=== PATIENT | female | born 1980 | race Caucasian/White ===

== ENCOUNTER 2021-12-05 12:49 | Emergency (ER) | payer OTHER, SELFPAY ==
[2021-12-05] MEDS ORDERED: NA CHLORIDE 0.9% 1,000 ML ONE (13:21)
[2021-12-05] MEDS ORDERED: KETOROLAC 30 MG/ML INJ ONE (13:21)
[2021-12-05 13:23] LABS: Urine Blood Negative (Negative); Urine Glucose Negative (Negative); Urine Protein Negative (Negative)
--- NOTE | 2021-12-05 13:41 | RAD REPORT ---
EXAM DESCRIPTION: CT - Abdomen Pelvis Wo Contrast - 12/05/2021 1:27 pm CLINICAL HISTORY: Abdominal pain. Abdominal pain, acute, nonlocalized COMPARISON: No comparisons TECHNIQUE: CT imaging of the abdomen and pelvis was performed without contrast. Solid organ, bowel a nd vascular assessment is limited due to lack of IV and oral contrast. All CT scans are performed using dose optimization technique as appropriate and may include automated exposure control or mA/KV adjustment according to patient size. FINDINGS: The lower lung varma are clear. The liver, spleen, pancreas, adrenal glands and kidneys are within normal limits for a limited non-co ntrast examination. No bowel obstruction, free air, free fluid or abscess. The appendix is normal. Tiny air bubble in th e urinary bladder. The osseous structures are within normal limits. IMPRESSION: No acute intra-abdominal or pelvic findings. Tiny air bubble in the urinary bladder seen. Suggest correlation for possible cholecystitis. A limited non-contrast examination was performed as detailed.
[2021-12-05 13:50] LABS: Absolute Lymphocytes (CBC) 1.7 K/uL (0.7-4.9); Hematocrit 39.1 % (36.0-45.0); Lymphocytes % 25.6 % (15.3-44.8); MCV 87.4 fL (80-100); MPV 9.4 fL (7.6-11.3); RBC Red Blood Cell Count 4.47 M/uL (3.86-4.86)
--- NOTE | 2021-12-05 13:52 | RAD REPORT ---
EXAM DESCRIPTION: US - Abdomen Exam Limited - 12/05/2021 1:25 pm CLINICAL HISTORY: ABD PAIN COMPARISON: No comparisons FINDINGS: The gallbladder demonstrates no gallstones. No pericholecystic fluid or gallbladder wall t hickening. The common bile duct is normal measuring 3 mm. The liver demonstrates no findings of intrahepatic biliary dilatation. IMPRESSION: Unremarkable examination.
[2021-12-05 14:10] LABS: Urine Bacteria <20 /HPF (<20); Urine RBC <5 /HPF (None Seen)
[2021-12-05 14:20] LABS: Albumin 4.1 g/dL (3.4-5.0); Bilirubin Total 0.5 mg/dL (0.2-1.0); Protein, Total 6.9 g/dL (6.4-8.2)
--- NOTE | 2021-12-05 14:24 | EDPHYS ---
Physician Documentation [facility] Name: Kerline Sheikh Age: 41 yrs Sex: Female : 1980 Arrival Date: 12/05/2021 Time: 12:57 Bed 24 Private MD: ED Physician David Zabala HPI: 12/05 14:03 This 41 yrs old Female presents to ER via Unassigned with complaints of ruq lorne pain , right flank pain. 14:03 The patient presents with abdominal pain in the right upper quadrant, right lower lorne quadrant, abdominal distention in the upper abdomen, in the lower abdomen. Onset: The symptoms/episode began/occurred 2 day(s) ago. The symptoms radiate to Associated signs and symptoms: Pertinent positives: anorexia. The symptoms are described as crampy. Modifying factors: The symptoms are alleviated by remaining still, the symptoms are aggravated by movement. The patient has not experienced similar symptoms in the past. 14:25 Severity of pain: At its worst the pain was mild moderate in the emergency department lorne the pain is unchanged. Historical: - Allergies: 15:03 No Known Allergies; zheng - Home Meds: 15:03 None [Active]; zheng - PMHx: 15:03 None; zheng - PSHx: 15:03 None; zheng - Immunization history:: Adult Immunizations up to date. - Family history:: not pertinent. - Social history:: Smoking status: Patient denies any tobacco usage or history of. ROS: 14:05 Constitutional: Negative for fever, chills, and weight loss, Eyes: Negative for injury, lorne pain, redness, and discharge, ENT: Negative for injury, pain, and discharge, Neck: Negative for injury, pain, and swelling, Cardiovascular: Negative for chest pain, palpitations, and edema, Respiratory: Negative for shortness of breath, cough, wheezing, and pleuritic chest pain, Back: Negative for injury and pain, : Negative for injury, bleeding, discharge, and swelling, MS/Extremity: Negative for injury and deformity, Skin: Negative for injury, rash, and discoloration, Neuro: Negative for headache, weakness, numbness, tingling, and seizure, Psych: Negative for depression, anxiety, suicide ideation, homicidal ideation, and hallucinations, Allergy/Immunology: Negative for hives, rash, and allergies, Endocrine: Negative for neck swelling, polydipsia, polyuria, polyphagia, and marked weight changes, Hematologic/Lymphatic: Negative for swollen nodes, abnormal bleeding, and unusual bruising. 14:05 Abdomen/GI: Positive for abdominal pain, of the right upper quadrant and right lower quadrant. Exam: 14:05 Constitutional: This is a well developed, well nourished patient who is awake, alert, lorne and in no acute distress. Head/Face: Normocephalic, atraumatic. Eyes: Pupils equal round and reactive to light, extra-ocular motions intact. Lids and lashes normal. Conjunctiva and sclera are non-icteric and not injected. Cornea within normal limits. Periorbital areas with no swelling, redness, or edema. ENT: Nares patent. No nasal discharge, no septal abnormalities noted. Tympanic membranes are normal and external auditory canals are clear. Oropharynx with no redness, swelling, or masses, exudates, or evidence of obstruction, uvula midline. Mucous membranes moist. Neck: Trachea midline, no thyromegaly or masses palpated, and no cervical lymphadenopathy. Supple, full range of motion without nuchal rigidity, or vertebral point tenderness. No Meningismus. Chest/axilla: Normal chest wall appearance and motion. Nontender with no deformity. No lesions are appreciated. Cardiovascular: Regular rate and rhythm with a normal S1 and S2. No gallops, murmurs, or rubs. Normal PMI, no JVD. No pulse deficits. Respiratory: Lungs have equal breath sounds bilaterally, clear to auscultation and percussion. No rales, rhonchi or wheezes noted. No increased work of breathing, no retractions or nasal flaring. Back: No spinal tenderness. No costovertebral tenderness. Full range of motion. Skin: Warm, dry with normal turgor. Normal color with no rashes, no lesions, and no evidence of cellulitis. MS/ Extremity: Pulses equal, no cyanosis. Neurovascular intact. Full, normal range of motion. Neuro: Awake and alert, GCS 15, oriented to person, place, time, and situation. Cranial nerves II-XII grossly intact. Motor strength 5/5 in all extremities. Sensory grossly intact. Cerebellar exam normal. Normal gait. 14:05 Abdomen/GI: Inspection: abdomen appears normal, Bowel sounds: normal, Palpation: mild abdominal tenderness, in the right upper quadrant and right lower quadrant, Liver: no appreciated palpable abnormalities, Hernia: not appreciated. Vital Signs: 15:04 BP 136 / 81; Pulse 82; Resp 17; Temp 98.2; Pulse Ox 100% on R/A; Weight 72.57 kg; zheng Height 5 ft. 5 in. (165.10 cm); 15:04 Body Mass Index 26.63 (72.57 kg, 165.10 cm) zheng MDM: 12:57 Patient medically screened. lorne 14:08 Differential diagnosis: Cholelithiasis, diverticulitis, gastritis, non-specific abd lorne pain, pancreatitis, Peptic Ulcer Disease, Pyelonephritis, Ureterolithiasis, urinary tract infection. Data reviewed: vital signs, nurses notes, lab test result(s), radiologic studies, CT scan, ultrasound. Data interpreted: color television console monitor: rate is 75 beats/min, rhythm is regular, Pulse oximetry: on room air is 98 %. Counseling: I had a detailed discussion with the patient and/or guardian regarding: the historical points, exam findings, and any diagnostic results supporting the discharge/admit diagnosis, lab results, radiology results, the need for outpatient follow up, for definitive care, a family practitioner, a reading specialist. 12/05 12:59 Order name: CBC with Diff; Complete Time: 14:22 [facility] 12/05 12:59 Order name: CMP; Complete Time: 14:22 [facility] 12/05 12:59 Order name: Lipase; Complete Time: 14:22 [facility] 12/05 12:59 Order name: Urine Microscopic Only; Complete Time: 14:22 lorne 12/05 13:23 Order name: Urine Dipstick-Ancillary; Complete Time: 13:37 EDME 12/05 13:35 Order name: Urine --Ancillary (enter results) eb 12/05 12:59 Order name: Abdomen Limited US; Complete Time: 13:54 [facility] 12/05 12:59 Order name: CT Abd/Pelvis - Without Contrast; Complete Time: 13:54 [facility] 12/05 12:59 Order name: IV Saline Lock; Complete Time: 13:44 [facility] 12/05 12:59 Order name: Labs collected and sent; Complete Time: 13:44 [facility] 12/05 12:59 Order name: Urine Dipstick-Ancillary (obtain specimen); Complete Time: 13:44 [facility] 12/05 12:59 Order name: Urine Test (obtain specimen); Complete Time: 13:44 [facility] Administered Medications: 13:44 Drug: NS 0.9% 1000 ml Route: IV; Rate: 1 bolus; Site: right antecubital; zheng 13:44 Drug: Ketorolac 30 mg Route: IVP; Site: right antecubital; zheng 13:44 Follow up: Response: No adverse reaction zheng 14:41 Drug: Rocephin (cefTRIAXone) 1 grams Route: IV; Rate: per protocol; Site: right zheng antecubital; 14:41 Follow up: IV Status: Completed infusion zheng Disposition Summary: 12/05/21 14:23 Discharge Ordered Location: Home [facility] Problem: new [facility] Symptoms: have improved lorne Condition: Stable lorne Diagnosis - Abdominal tenderness lorne - Epigastric abdominal tenderness lorne - UTI/ Urinary tract infection, site not specified lorne Followup: lorne - With: Private Physician - When: 2 - 3 days - Reason: Recheck today's complaints, Continuance of care, Re-evaluation by your physician Followup: lorne - With: - When: 2 - 3 days - Reason: Recheck today's complaints, Re-evaluation by your physician Discharge Instructions: - Discharge Summary Sheet lorne - Abdominal Pain, Adult lorne - Nausea, Adult [facility] - Abdominal Pain, Adult, [id number] lorne - Urinary Tract Infection, Adult lorne - Urinary Tract Infection, Adult, [id number] lorne - Nausea, Adult, [id number] [facility] Forms: - Medication Reconciliation Form [facility] - Thank You Letter [facility] - Antibiotic Education [facility] - Prescription Opioid Use [facility] Prescriptions: - Pepcid 20 mg Oral Tablet - take 1 tablet by ORAL route every 12 hours for 21 days; 42 tablet; Refills: 0, [facility] Product Selection Permitted - Zofran 4 mg Oral Tablet - take 1 tablet by ORAL route every 12 hours As needed; 20 tablet; Refills: 0, [facility] Product Selection Permitted - dicyclomine 20 mg Oral Tablet - take 2 tablets by ORAL route 4 times per day; 28 tablet; Refills: 0, Product [facility] Selection Permitted - Cipro 250 mg Oral Tablet - take 1 tablet by ORAL route every 12 hours; 14 tablet; Refills: 0, Product [facility] Selection Permitted Signatures: Dispatcher [employer] EDMS Vj, David, MD MD lorne Au-Stager, Anya, RN RN zheng
[2021-12-05] MEDS ORDERED: CEFTRIAXONE 1000 MG/VIAL ONE (14:44)
--- NOTE | 2021-12-05 15:06 | ER ---
Nurse's Notes [facility] Name: Kelrine Sheikh Age: 41 yrs Sex: Female : 1980 Arrival Date: 12/05/2021 Time: 12:57 Bed 24 Private MD: Diagnosis: Abdominal tenderness;Epigastric abdominal tenderness;UTI/ Urinary tract infection, site not specified Presentation: 12/05 15:04 Chief complaint: Patient states: abdominal pain x4 days. Coronavirus screen: Vaccine zheng status: Patient reports receiving the 2nd dose of the covid vaccine. Ebola Screen: Patient denies travel to an Ebola-affected area in the 21 days before illness onset. Initial Sepsis Screen: Does the patient meet any 2 criteria? No. Patient's initial sepsis screen is negative. Does the patient have a suspected source of infection? No. Patient's initial sepsis screen is negative. Risk Assessment: Do you want to hurt yourself or someone else? Patient reports no desire to harm self or others. Onset of symptoms was December 01, 2021. 15:04 Method Of Arrival: Ambulatory zheng 15:04 Acuity: ED 3 zheng Triage Assessment: 15:04 General: Appears in no apparent distress. Behavior is calm, cooperative. zheng Historical: - Allergies: 15:03 No Known Allergies; zheng - Home Meds: 15:03 None [Active]; zheng - PMHx: 15:03 None; zheng - PSHx: 15:03 None; zheng - Immunization history:: Adult Immunizations up to date. - Family history:: not pertinent. - Social history:: Smoking status: Patient denies any tobacco usage or history of. Screenin:03 Abuse screen: Denies threats or abuse. Denies injuries from another. Nutritional zheng screening: No deficits noted. Tuberculosis screening: No symptoms or risk factors identified. Fall Risk None identified. Assessment: 15:03 Pain: Complains of pain in abdomen. GI: Reports Pain is 7 out of 10 on a pain scale. zheng Vital Signs: 15:04 BP 136 / 81; Pulse 82; Resp 17; Temp 98.2; Pulse Ox 100% on R/A; Weight 72.57 kg; zheng Height 5 ft. 5 in. (165.10 cm); 15:04 Body Mass Index 26.63 (72.57 kg, 165.10 cm) zheng ED Course: 12:57 Patient arrived in ED. lorne 12:57 David Zabala MD is Attending Physician. [facility] 13:07 Anya Mendoza, RN is Primary Nurse. zheng 13:27 Abdomen Limited US In Process Unspecified. EDMS 13:29 CT Abd/Pelvis - Without Contrast In Process Unspecified. EDMS 14:23 Todd Sagastume MD is Referral Physician. lorne 15:03 Patient has correct armband on for positive identification. Bed in low position. zheng 15:03 No provider procedures requiring assistance completed. Inserted saline lock: 20 gauge zheng in right antecubital area, using aseptic technique. IV discontinued, intact, Pressure dressing applied. 15:04 Arm band placed on. zheng 15:05 Triage completed. zheng Administered Medications: 13:44 Drug: NS 0.9% 1000 ml Route: IV; Rate: 1 bolus; Site: right antecubital; zheng 13:44 Drug: Ketorolac 30 mg Route: IVP; Site: right antecubital; zheng 13:44 Follow up: Response: No adverse reaction zheng 14:41 Drug: Rocephin (cefTRIAXone) 1 grams Route: IV; Rate: per protocol; Site: right zheng antecubital; 14:41 Follow up: IV Status: Completed infusion zheng Medication: 15:03 VIS not applicable for this client. zheng Outcome: 14:23 Discharge ordered by . [facility] 15:03 Discharged to home ambulatory, with friend. zheng 15:03 Condition: good 15:03 Discharge instructions given to Prescriptions given X 4. 15:05 Patient left the ED. zheng Signatures: Dispatcher [employer] EDCT David Zabala MD MD cha Au-Stager, Heather, RN RN zheng
[2021-12-05 15:46] VITALS: BP 136/81; TEMP 98.2; O2SAT 100
== END 2021-12-05 15:05 | disposition home or self-care (01) ==
LOC: ER 12:49
DX: N39.0 Urinary tract infection, site not specified (principal)
CPT/HCPCS: 85025; 36415; 81025; 83690; 80053; 74176; 76705; J7030; 81003; 81015; 96374; 96375; 99284